=== PATIENT | female | born 2000 | race Caucasian/White ===

== ENCOUNTER 2022-11-06 16:40 | Emergency (ER) | payer OTHER, SELFPAY ==
[2022-11-06 16:42] VITALS: BP 197/107; PULSE 105; RESP 18; TEMP 35.9; O2SAT 100; BMI 42.5
--- NOTE | 2022-11-06 17:19 | EDS_ITS ---
HPI History of Present Illness Chief Complaint: Back Informant: patient Narrative Narrative: Presents with lower back pain. 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 As she stood up she got just a sharp pain in her back. She went to work and it was just sore when she was standing for a while at [employer]. No numbness tingling. She does not have pain radiating from the back. No trouble urinating or moving bowels. No history of back problems. She never fell. PFSH PFS Medical History no medical history Home Medications naproxen 500 mg tablet 500 mg PO BID #14 tabs 11/06/22 [Rx Last Taken Unknown] Allergy/AdvReac Type Severity Reaction Status Date / Time No Known Allergies Allergy Verified 11/06/22 16:44 Social History Smoking Status: Never smoker ROS ROS ED Constitutional Constitutional ED: Denies chills or fever(s) Eyes Eyes: Denies change in vision ENT ENT ED: Denies rhinorrhea or sore throat Cardiovascular Cardiovascular: Denies chest pain or palpitations Respiratory/Chest Respiratory/Chest: Denies dyspnea Gastrointestinal Gastrointestinal: Denies abdominal pain, constipation, diarrhea, melena, nausea or vomiting Genitourinary Genitourinary ED: Denies dysuria, hematuria or urinary frequency Musculoskeletal Musculoskeletal: Reports back pain Integumentary Denies abscess or rash Neurologic Neurologic: Denies paresthesias or weakness Hematologic/Lymphatic Hematologic/Lymphatic: Denies easy bleeding or easy bruising Allergic/Immunologic Allergic/Immunologic ED: Denies urticaria EXAM Physical Exam Narrative Exam Narrative: Is awake alert sitting comfortably in bed. She is actually smiling and laughing. Nontoxic in appearance. HEENT: No sign of trauma. Lungs are clear bilaterally. Saturations are normal. Heart is regular. Abdomen is mildly obese but benign. Extremities show no swelling contusions. Back: She states it does not really hurt to press on her back. But it hurts if she stands for a while or twists. I am not getting any tenderness. There is no swelling. No rash. No vesicles. Neurologic: She has +2 bilateral patellar reflexes. She has +1 bilateral Achi lles reflexes. I get her to stand up. She can stand on her toes. She can lift her toes up off the ground. She has normal squat/quad strength. Const Vital Signs: 11/06/22 16:42 Temperature 96.7 F L Temperature Source Temporal Pulse Rate 105 H Respiratory Rate 18 Blood Pressure 197/107 H Blood Pressure Mean 137 Pulse Ox 100 Oxygen Delivery Method Room Air MDM MDM MDM Narrative Medical decision making narrative: Has no red flags of back pain. She has no blunt or acute trauma. I do not think x-rays would be beneficial. She has no urinary symptoms. I do not think urinalysis or blood work is needed. We will get her started on Naprosyn. We will have her follow-up with her physician. She should follow-up for recheck. She also needs to recheck her blood pressure. Patient does have a history of polycystic ovarian syndrome. Discharge Plan Triage Chief Complaint: Back ED Provider: Silas Gotti Dx/Rx/DC Orders Clinical Impression: Back pain Instructions: ED Back Pain (Acute or Chronic) Prescriptions: New naproxen 500 mg tablet 500 mg PO BID Qty: 14 0RF Stand Alone Forms: ED Work / School Excuse Primary Care Provider: Care Physician,No Primary Referrals: Harrison Marin DO [Med Staff - [employer]] - 3-5 Days Disposition Disposition: Home, Self Care Discharge Date/Time: 11/06/22 17:47
[2022-11-06] MEDS: Naproxen 500 MG Tablet PO (17:28)
== END 2022-11-06 17:47 | disposition home or self-care (01) ==
LOC: ED 17:46
PROVIDERS: Emergency Provider Emergency Medicine; Visit Provider Emergency Medicine
DX: M54.9 Dorsalgia, unspecified (principal)
CPT/HCPCS: 99283

== ENCOUNTER → 2023-01-16 | Outpatient (CLI) | payer OTHER, SELFPAY ==
[2023-01-16 12:26] LABS: Absolute Lymphocyte Count 2.48 X10^3/uL (0.83-4.51); Absolute Neutrophil Count 4.8 X10^3/uL (2.0-7.7); Basophil# 0.04 X10^3/uL; Basophil% 0.5 % (0-1); Eosinophil# 0.11 X10^3/uL; Eosinophils% 1.4 % (0-5); Hematocrit 43.1 % (37-47); Hemoglobin 14.1 g/dL (12.0-15.0); Lymphocyte # 2.48 X10^3/ul (0.83-4.51); Lymphocyte % 31.1 % (19-41); Mean Corp Hgb Conc 32.7 g/dL (32-36); Mean Corpuscular Hgb 27.6 pg (27.0-32.0); Mean Corpuscular Volume 84.5 fL (81-99); Mean Platelet Vol. 10.5 fl (6.2-12.0); Monocyte# 0.48 X10^3/uL; NRBC Flagged by Analyzer 0 % (0-5); Neutrophil # 4.83 X10^3/uL (2.7-7.7); Neutrophil % 60.6 % (47-70); Platelet Count 323 K/mm3 (150-450); RBC Distribution Width CV 12.1 % (11.6-14.6); RBC Distribution Width SD 36.9 fl (35.1-43.9)
[2023-01-17 20:29] LABS: ALB/GLOB Ratio 1.1 RATIO (0.9-2.4); AST(SGOT) 48 U/L (15-37); Alanine Aminotransfer ALT/SGPT 60 U/L (13-56); Albumin, Serum 3.7 g/dL (3.2-5.0); Alkaline Phosphatase 62 U/L (45-117); Anion Gap 6 (5-15); BUN 8 mg/dL (7-18); BUN/Creat Ratio 10.8 RATIO (10-20); Calcium,Total 8.3 mg/dL (8.5-10.1); Chloride 108 mmol/L (98-107); Cholesterol 143 mg/dL (200); Creatinine, Serum 0.74 mg/dL (0.55-1.02); EST Glomerular Filtration Rate 102 mL/min (>60); Est Glom Filt Rate - Afr Amer 123 mL/min (>60); Follicle Stimulating Hormone 5.8 mIU/mL; Globulin 3.4 g/dL (2.2-4.2); Glucose 91 mg/dL (74-106); High Density Lipoprotein 40 mg/dL; Luteinizing Hormone 7.3 mIU/mL; Protein, Total 7.1 g/dL (6.4-8.2); Sodium Level 139 mmol/L (136-145); Thyroid Stim Hormone (TSH) 3.42 uIU/mL (0.358-3.74); Triglycerides 81 mg/dL; Very Low Density Lipoprotein 16 mg/dL (5-40)
== END | disposition home or self-care (01) ==
PROVIDERS: PCP Family Medicine; Referring Provider Family Medicine; Visit Provider Family Medicine
DX: E28.2 Polycystic ovarian syndrome (principal); R03.0 Elevated blood-pressure reading, without diagnosis of hypertension; E66.9 Obesity, unspecified; L68.0 Hirsutism
CPT/HCPCS: 36415; 80053; 80061; 83001; 83002; 84403; 84443; 85025